=== PATIENT | female | born 1960 | race Caucasian/White ===

== ENCOUNTER 2018-10-17 09:50 | Outpatient (REF) | payer SELFPAY ==
[2018-10-17 21:18] LABS: Anion Gap 11.6 mmol/L (3-11); BUN 22 mg/dL (7-18); CO2 28.4 mmol/L (21.0-32.0); CREATININE 1.37 mg/dL (0.55-1.02); Calcium 10.6 mg/dL (8.5-10.1); Chloride 102 mmol/L (98-107); Estimated GFR 39.88 (mL/min/1.73m2); Glucose 227 mg/dL (70-100); Potassium 4.4 mmol/L (3.5-5.1); Sodium 142 mmol/L (136-145)
== END 2018-10-17 10:10 ==
LOC: NCHCN 09:50
PROVIDERS: PCP Nurse Practitioner Family; Visit Provider Nurse Practitioner Family
DX: E11.9 Type 2 diabetes mellitus without complications (principal); I10 Essential (primary) hypertension
CPT/HCPCS: 80048

== ENCOUNTER 2018-11-02 08:24 | Outpatient (REF) | payer OTHER, SELFPAY ==
[2018-11-02 21:52] LABS: Anion Gap 10.6 mmol/L (3-11); BUN 15 mg/dL (7-18); CO2 30.4 mmol/L (21.0-32.0); CREATININE 1.27 mg/dL (0.55-1.02); Chloride 102 mmol/L (98-107); Estimated GFR 43.53 (mL/min/1.73m2); Glucose 137 mg/dL (70-100); Potassium 4.3 mmol/L (3.5-5.1); Sodium 143 mmol/L (136-145)
== END 2018-11-02 08:44 ==
LOC: NCHCN 08:24
PROVIDERS: PCP Nurse Practitioner Family; Visit Provider Nurse Practitioner Family
DX: I10 Essential (primary) hypertension (principal); E83.52 Hypercalcemia
CPT/HCPCS: 80048

== ENCOUNTER 2019-07-21 09:55 | Outpatient (REF) | payer OTHER, SELFPAY ==
[2019-07-21 21:07] LABS: COMMENT (LAB VIEW ONLY) 200.09 mg/dL; Microalb ug/mg Crea 12.2 ug/mg Cr
== END 2019-07-21 10:15 ==
LOC: NCHCN 09:55
PROVIDERS: PCP Nurse Practitioner Family; Visit Provider Nurse Practitioner Family
DX: E11.9 Type 2 diabetes mellitus without complications (principal); I10 Essential (primary) hypertension; N18.9 Chronic kidney disease, unspecified
CPT/HCPCS: 82043; 82570

== ENCOUNTER 2020-01-12 11:02 | Outpatient (REF) | payer OTHER, SELFPAY ==
[2020-01-12 21:48] LABS: Anion Gap 7.9 mmol/L (3-11); CO2 29.1 mmol/L (21.0-32.0); CREATININE 1.47 mg/dL (0.55-1.02); Calcium 9.6 mg/dL (8.5-10.1); Chloride 100 mmol/L (98-107); Estimated GFR 36.64 (mL/min/1.73m2); Glucose 252 mg/dL (74-106); Magnesium 1.6 mg/dL (1.8-2.4); Potassium 4.3 mmol/L (3.5-5.1); Sodium 137 mmol/L (136-145); Vitamin B12 397 pg/mL (193-986)
[2020-01-12 21:53] LABS: BUN 26 mg/dL (7-18)
[2020-01-12 21:56] LABS: Hemoglobin A1C 7.5 % (3.8-5.6)
== END 2020-01-12 11:22 ==
LOC: NCHCN 11:02
PROVIDERS: PCP Nurse Practitioner Family; Visit Provider Nurse Practitioner Family
DX: E11.9 Type 2 diabetes mellitus without complications (principal); I10 Essential (primary) hypertension; N18.9 Chronic kidney disease, unspecified; R74.8 Abnormal levels of other serum enzymes
CPT/HCPCS: 80048; 82607; 83036; 83735

== ENCOUNTER 2020-07-16 12:06 | Outpatient (REF) | payer OTHER, SELFPAY ==
[2020-07-16 20:52] LABS: HCT 38.4 % (36.0-46.0); HGB 12.4 g/dL (11.2-15.7); MCHC 32.3 % (32.0-36.0); MCV 92.8 fL (80-95); MPV 10.5 fL (8.0-11.0); Platelet Count 356 10^3/uL (130-400); RBC 4.14 10^6/uL (3.93-5.22); RDW 13.5 % (11.7-14.6); RDW-SD 45.8 fL; WBC 7.12 10^3/uL (4.4-10.8)
[2020-07-16 21:20] LABS: ALT 46 U/L (14-59); AST 27 U/L (15-37); Albumin 3.9 g/dL (3.4-5.0); Alkaline Phosphatase 78 U/L (46-116); Anion Gap 10.8 mmol/L (3-11); BUN 22 mg/dL (7-18); Bilirubin, Total 1.1 mg/dL (0.2-1.0); CO2 25.2 mmol/L (21.0-32.0); CREATININE 1.38 mg/dL (0.55-1.02); Calcium 9.6 mg/dL (8.5-10.1); Chloride 103 mmol/L (98-107); Estimated GFR 39.27 (mL/min/1.73m2); Glucose 193 mg/dL (74-106); Magnesium 1.8 mg/dL (1.8-2.4); Potassium 4.2 mmol/L (3.5-5.1); Sodium 139 mmol/L (136-145); TSH 1.89 uIU/mL (0.36-3.74); Total Protein 7.5 g/dL (6.4-8.2)
== END 2020-07-16 12:26 ==
LOC: NCHCN 12:06
PROVIDERS: PCP Nurse Practitioner Family; Visit Provider Nurse Practitioner Family
DX: Z01.818 Encounter for other preprocedural examination (principal); E11.9 Type 2 diabetes mellitus without complications; I10 Essential (primary) hypertension; N18.9 Chronic kidney disease, unspecified; E01.0 Iodine-deficiency related diffuse (endemic) goiter; K21.9 Gastro-esophageal reflux disease without esophagitis; Z13.0 Encounter for screening for diseases of the blood and blood-forming organs and certain disorders involving the immune mechanism
CPT/HCPCS: 80053; 85027; 82043; 82570; 83735; 84443

== ENCOUNTER 2021-06-10 09:48 | Outpatient (REF) | payer OTHER, SELFPAY ==
--- NOTE | 2021-06-10 08:30 | PAPFT_PTH ---
PATIENT: Jahaira Flanagan LOC: [facility]#:[id number] AGE/SX: 60/F ROOM: RE06/10/[address]: Dianna Newman : 1960 BED: DIS: 06/10/2021 SPEC #: [id number] RECD: 06/10/21 16:16 STATUS: GOPAL ORNELAS #: [id number] IFTIKHAR: 06/10/21 08:[address]: Dianna Wei DEPT: [facility] Cytology RECD BY: Rox Edwards Tissues: 1 - CX/ENDOCX FOR PAP SMEARS Procedures: PAP THIN PREP/[facility] Screening HPV DNA PROBE Comments: [id number]
[2021-06-10 14:35] LABS: ALT 58 U/L (14-59); AST 43 U/L (15-37); Albumin 4.1 g/dL (3.4-5.0); Alkaline Phosphatase 75 U/L (46-116); Anion Gap 11.8 mmol/L (3-11); BUN 20 mg/dL (7-18); Bilirubin, Total 1.1 mg/dL (0.2-1.0); CO2 27.2 mmol/L (21.0-32.0); CREATININE 1.5 mg/dL (0.55-1.02); Calcium 9.3 mg/dL (8.5-10.1); Chloride 105 mmol/L (98-107); Estimated GFR 35.67 (mL/min/1.73m2); Glucose 115 mg/dL (74-106); Magnesium 1.7 mg/dL (1.8-2.4); Potassium 4.5 mmol/L (3.5-5.1); Sodium 144 mmol/L (136-145); Total Protein 7.5 g/dL (6.4-8.2); Vitamin B12 759 pg/mL (193-986)
[2021-06-10 14:59] LABS: Microalb ug/mg Crea 6.8 ug/mg Cr
== END 2021-06-10 09:49 | disposition home or self-care (01) ==
LOC: NCHCN 09:48
PROVIDERS: PCP Nurse Practitioner Family; Referring Provider Nurse Practitioner Family; Visit Provider Nurse Practitioner Family
DX: Z12.4 Encounter for screening for malignant neoplasm of cervix (principal); Z01.419 Encounter for gynecological examination (general) (routine) without abnormal findings; E11.9 Type 2 diabetes mellitus without complications; I10 Essential (primary) hypertension; K76.0 Fatty (change of) liver, not elsewhere classified; K21.9 Gastro-esophageal reflux disease without esophagitis; Z00.00 Encounter for general adult medical examination without abnormal findings; Z11.51 Encounter for screening for human papillomavirus (HPV)
CPT/HCPCS: 80053; 88142; 82043; 82570; 82607; 83735; 87624

== ENCOUNTER 2021-09-04 19:47 | Outpatient (REF) | payer OTHER, SELFPAY ==
[2021-09-04 21:36] LABS: Anion Gap 7.6 mmol/L (3-11); BUN 22 mg/dL (7-18); CO2 29.4 mmol/L (21.0-32.0); CREATININE 1.7 mg/dL (0.55-1.02); Calcium 9.8 mg/dL (8.5-10.1); Chloride 102 mmol/L (98-107); Estimated GFR 30.76 (mL/min/1.73m2); Glucose 259 mg/dL (74-106); Potassium 4.1 mmol/L (3.5-5.1); Sodium 139 mmol/L (136-145)
[2021-09-04 21:38] LABS: Hemoglobin A1C 7.5 % (<5.7)
== END 2021-09-04 19:48 | disposition home or self-care (01) ==
LOC: NCHCN 19:47
PROVIDERS: PCP Nurse Practitioner Family; Visit Provider Nurse Practitioner Family
DX: E11.9 Type 2 diabetes mellitus without complications (principal); I10 Essential (primary) hypertension
CPT/HCPCS: 80048; 83036

== ENCOUNTER 2021-09-08 15:12 | Outpatient (REF) | payer OTHER, SELFPAY ==
[2021-09-08 22:32] LABS: Bacteria Negative HPF (Negative); C & S Indicated? No; Casts Negative LPF (Negative); Crystals Negative HPF (Negative); Epithelial Cells Rare HPF (Negative); Mucus Negative (Negative); RBC 0-2 HPF (0-2); WBC Negative HPF (0-5)
== END 2021-09-08 15:13 | disposition home or self-care (01) ==
LOC: NCHCN 15:12
PROVIDERS: PCP Nurse Practitioner Family; Visit Provider Nurse Practitioner Family
DX: N18.9 Chronic kidney disease, unspecified (principal); I10 Essential (primary) hypertension; E11.9 Type 2 diabetes mellitus without complications
CPT/HCPCS: 81015

== ENCOUNTER 2021-09-29 21:13 | Outpatient (REF) | payer OTHER, SELFPAY ==
[2021-09-29 21:53] LABS: Anion Gap 8.7 mmol/L (3-11); BUN 24 mg/dL (7-18); CO2 28.3 mmol/L (21.0-32.0); CREATININE 1.7 mg/dL (0.55-1.02); Calcium 9.6 mg/dL (8.5-10.1); Chloride 105 mmol/L (98-107); Estimated GFR 30.76 (mL/min/1.73m2); Glucose 155 mg/dL (74-106); Potassium 4.4 mmol/L (3.5-5.1); Sodium 142 mmol/L (136-145)
== END 2021-09-29 21:14 | disposition home or self-care (01) ==
LOC: NCHCN 21:13
PROVIDERS: PCP Nurse Practitioner Family; Visit Provider Nurse Practitioner Family
DX: N18.9 Chronic kidney disease, unspecified (principal)
CPT/HCPCS: 80048

== ENCOUNTER 2021-10-23 14:09 | Outpatient (REF) | payer OTHER, SELFPAY ==
[2021-10-23 15:10] LABS: BUN 33 mg/dL (7-18); CREATININE 1.5 mg/dL (0.55-1.02); Calcium 9.7 mg/dL (8.5-10.1); Chloride 101 mmol/L (98-107); Estimated GFR 35.54 (mL/min/1.73m2); Glucose 160 mg/dL (74-106); Potassium 4.5 mmol/L (3.5-5.1); Sodium 139 mmol/L (136-145)
== END 2021-10-23 14:10 | disposition home or self-care (01) ==
LOC: NCHCN 14:09
PROVIDERS: PCP Nurse Practitioner Family; Visit Provider Nurse Practitioner Family
DX: I10 Essential (primary) hypertension (principal); R60.0 Localized edema
CPT/HCPCS: 80048

== ENCOUNTER 2021-12-04 19:44 | Outpatient (REF) | payer OTHER, SELFPAY ==
[2021-12-04 21:44] LABS: Anion Gap 11.2 mmol/L (3-11); BUN 30 mg/dL (7-18); CO2 27.8 mmol/L (21.0-32.0); CREATININE 1.8 mg/dL (0.55-1.02); Calcium 9.4 mg/dL (8.5-10.1); Chloride 104 mmol/L (98-107); Glucose 170 mg/dL (74-106); Potassium 3.1 mmol/L (3.5-5.1); Sodium 143 mmol/L (136-145)
== END 2021-12-04 19:45 | disposition home or self-care (01) ==
LOC: NCHCN 19:44
PROVIDERS: PCP Nurse Practitioner Family; Visit Provider Nurse Practitioner Family
DX: I10 Essential (primary) hypertension (principal)
CPT/HCPCS: 80048

== ENCOUNTER 2022-01-27 20:57 | Outpatient (REF) | payer OTHER, SELFPAY | END 2022-01-27 20:58 | disposition home or self-care (01) | LOC: NCHCN 20:57 | PROVIDERS: PCP Nurse Practitioner Family; Visit Provider Internal Medicine | DX: G70.00 Myasthenia gravis without (acute) exacerbation (principal) | CPT/HCPCS: 83519 ==

== ENCOUNTER 2022-04-28 15:16 | Outpatient (REF) | payer OTHER, SELFPAY ==
[2022-04-28 16:05] LABS: BUN 22 mg/dL (7-18); CREATININE 1.5 mg/dL (0.55-1.02); Calcium 8.9 mg/dL (8.5-10.1); Chloride 102 mmol/L (98-107); Estimated GFR 35.54 (mL/min/1.73m2); Glucose 142 mg/dL (74-106); Potassium 3.7 mmol/L (3.5-5.1); Sodium 141 mmol/L (136-145)
== END 2022-04-28 15:17 | disposition home or self-care (01) ==
LOC: NCHCN 15:16
PROVIDERS: PCP Nurse Practitioner Family; Visit Provider Nurse Practitioner Family
DX: I10 Essential (primary) hypertension (principal)
CPT/HCPCS: 80048

== ENCOUNTER 2022-06-22 16:53 | Outpatient (REF) | payer OTHER, SELFPAY ==
[2022-06-22 20:55] LABS: HCT 35.5 % (36.0-46.0); HGB 11.3 g/dL (11.2-15.7); MCH 27.8 pg (27.0-33.0); MCHC 31.8 % (32.0-36.0); MCV 87 fL (80-95); MPV 10.5 fL (8.0-11.0); Platelet Count 287 10^3/uL (130-400); RBC 4.06 10^6/uL (3.93-5.22); RDW-SD 51.8 fL; WBC 7.05 10^3/uL (4.4-10.8)
[2022-06-22 21:17] LABS: Hemoglobin A1C 7.1 % (<5.7)
[2022-06-22 21:34] LABS: ALT 48 U/L (14-59); AST 31 U/L (15-37); Albumin 3.9 g/dL (3.4-5.0); Alkaline Phosphatase 90 U/L (46-116); Anion Gap 10.3 mmol/L (3-11); BUN 32 mg/dL (7-18); Bilirubin, Total 1.1 mg/dL (0.2-1.0); CO2 27.7 mmol/L (21.0-32.0); CREATININE 1.7 mg/dL (0.55-1.02); Calcium 9.2 mg/dL (8.5-10.1); Calculated LDL 50 mg/dL (<100); Chloride 103 mmol/L (98-107); Cholesterol 128 mg/dL (<200); Estimated GFR 34.12 (mL/min/1.73m2); Glucose 148 mg/dL (74-106); HDL Cholesterol 46 mg/dL (40-60); Magnesium 1.8 mg/dL (1.8-2.4); Potassium 3.6 mmol/L (3.5-5.1); Sodium 141 mmol/L (136-145); TSH 1.72 uIU/mL (0.36-3.74); Total Protein 7.9 g/dL (6.4-8.2); Triglyceride 160 mg/dL (<150); Vitamin B12 707 pg/mL (193-986)
== END 2022-06-22 16:54 | disposition home or self-care (01) ==
LOC: NCHCN 16:53
PROVIDERS: PCP Nurse Practitioner Family; Visit Provider Nurse Practitioner Family
DX: E11.9 Type 2 diabetes mellitus without complications (principal); I10 Essential (primary) hypertension; E01.0 Iodine-deficiency related diffuse (endemic) goiter; E78.5 Hyperlipidemia, unspecified; N18.9 Chronic kidney disease, unspecified; K21.9 Gastro-esophageal reflux disease without esophagitis
CPT/HCPCS: 80053; 80061; 85027; 82607; 83036; 83735; 84443

== ENCOUNTER 2022-06-29 18:30 | Outpatient (REF) | payer OTHER, SELFPAY ==
[2022-06-29 21:55] LABS: Microalb ug/mg Crea 9.5 ug/mg Cr
== END 2022-06-29 18:31 | disposition home or self-care (01) ==
LOC: NCHCN 18:30
PROVIDERS: PCP Nurse Practitioner Family; Visit Provider Nurse Practitioner Family
DX: E11.9 Type 2 diabetes mellitus without complications (principal)
CPT/HCPCS: 82043; 82570

== ENCOUNTER 2022-12-21 15:55 | Outpatient (REF) | payer OTHER, SELFPAY ==
[2022-12-21 21:15] LABS: Anion Gap 8.5 mmol/L (3-11); BUN 31 mg/dL (7-18); CO2 28.5 mmol/L (21.0-32.0); CREATININE 1.6 mg/dL (0.55-1.02); Calcium 9.4 mg/dL (8.5-10.1); Chloride 104 mmol/L (98-107); Estimated GFR 36.69 (mL/min/1.73m2); Glucose 133 mg/dL (74-106); Sodium 141 mmol/L (136-145)
[2022-12-21 21:20] LABS: Hemoglobin A1C 7.4 % (<5.7)
== END 2022-12-21 15:56 | disposition home or self-care (01) ==
LOC: NCHCN 15:55
PROVIDERS: PCP Nurse Practitioner Family; Visit Provider Nurse Practitioner Family
DX: E11.9 Type 2 diabetes mellitus without complications (principal); I10 Essential (primary) hypertension
CPT/HCPCS: 80048; 83036

== ENCOUNTER 2023-06-21 15:49 | Outpatient (REF) | payer OTHER, SELFPAY ==
[2023-06-21 22:07] LABS: HGB 11.5 g/dL (11.2-15.7); MCH 28.1 pg (27.0-33.0); MCHC 31.1 % (32.0-36.0); MCV 91 fL (80-95); MPV 10.5 fL (8.0-11.0); Platelet Count 275 10^3/uL (130-400); RBC 4.09 10^6/uL (3.93-5.22); RDW 14.7 % (11.7-14.6); RDW-SD 49.5 fL; WBC 7.44 10^3/uL (4.4-10.8)
[2023-06-21 22:36] LABS: Hemoglobin A1C 7.1 % (<5.7)
[2023-06-21 22:56] LABS: ALT 30 U/L (14-59); AST 24 U/L (15-37); Albumin 3.7 g/dL (3.4-5.0); Alkaline Phosphatase 101 U/L (46-116); Anion Gap 10.7 mmol/L (3-11); BUN 27 mg/dL (7-18); Bilirubin, Total 1.3 mg/dL (0.2-1.0); CO2 26.3 mmol/L (21.0-32.0); CREATININE 1.4 mg/dL (0.55-1.02); Calcium 9.5 mg/dL (8.5-10.1); Chloride 103 mmol/L (98-107); Glucose 210 mg/dL (74-106); Potassium 3.6 mmol/L (3.5-5.1); Sodium 140 mmol/L (136-145); Total Protein 7.8 g/dL (6.4-8.2)
== END 2023-06-21 15:50 | disposition home or self-care (01) ==
LOC: NCHCN 15:49
PROVIDERS: PCP Nurse Practitioner Family; Visit Provider Nurse Practitioner Family
DX: E11.9 Type 2 diabetes mellitus without complications (principal); I10 Essential (primary) hypertension; D64.9 Anemia, unspecified; N18.9 Chronic kidney disease, unspecified
CPT/HCPCS: 80053; 85027; 83036

== ENCOUNTER 2023-06-28 14:06 | Outpatient (REF) | payer OTHER, SELFPAY ==
[2023-06-28 21:31] LABS: COMMENT (LAB VIEW ONLY) 53.91 mg/dL; Microalb ug/mg Crea 16.5 ug/mg Cr
== END 2023-06-28 14:07 | disposition home or self-care (01) ==
LOC: NCHCN 14:06
PROVIDERS: PCP Nurse Practitioner Family; Visit Provider Nurse Practitioner Family
DX: E11.9 Type 2 diabetes mellitus without complications (principal)
CPT/HCPCS: 82043; 82570

== ENCOUNTER 2023-09-28 16:27 | Outpatient (REF) | payer OTHER, SELFPAY ==
[2023-09-28 17:51] LABS: Anion Gap 9.7 mmol/L (3-11); BUN 28 mg/dL (7-18); CO2 26.3 mmol/L (21.0-32.0); CREATININE 1.5 mg/dL (0.55-1.02); Calcium 9.2 mg/dL (8.5-10.1); Chloride 106 mmol/L (98-107); Glucose 167 mg/dL (74-106); Potassium 3.9 mmol/L (3.5-5.1); Sodium 142 mmol/L (136-145)
[2023-09-28 18:15] LABS: Hemoglobin A1C 6.8 % (<5.7)
== END 2023-09-28 16:28 | disposition home or self-care (01) ==
LOC: NCHCN 16:27
PROVIDERS: PCP Nurse Practitioner Family; Visit Provider Nurse Practitioner Family
DX: I10 Essential (primary) hypertension (principal); E11.9 Type 2 diabetes mellitus without complications
CPT/HCPCS: 80048; 83036

== ENCOUNTER 2024-05-16 17:16 | Outpatient (REF) | payer OTHER, SELFPAY ==
[2024-05-16 15:15] LABS: HCT 41.3 % (36.0-46.0); HGB 12.9 g/dL (11.2-15.7); MCHC 31.2 % (32.0-36.0); MCV 93 fL (80-95); MPV 10.3 fL (8.0-11.0); Platelet Count 279 10^3/uL (130-400); RBC 4.45 10^6/uL (3.93-5.22); RDW 13.4 % (11.7-14.6); RDW-SD 45.8 fL; WBC 6.52 10^3/uL (4.4-10.8)
[2024-05-16 15:42] LABS: ALT 27 U/L (14-59); AST 21 U/L (15-37); Albumin 3.9 g/dL (3.4-5.0); Alkaline Phosphatase 92 U/L (46-116); Anion Gap 7.6 mmol/L (3-11); BUN 25 mg/dL (7-18); Bilirubin, Total 1.04 mg/dL (0.2-1.0); CO2 30.4 mmol/L (21.0-32.0); CREATININE 1.3 mg/dL (0.55-1.02); Calcium 9.4 mg/dL (8.5-10.1); Calculated LDL 61 mg/dL (<100); Chloride 104 mmol/L (98-107); Cholesterol 135 mg/dL (<200); Estimated GFR 46.78 (mL/min/1.73m2); Glucose 115 mg/dL (74-106); HDL Cholesterol 46 mg/dL (40-60); Potassium 3.9 mmol/L (3.5-5.1); Sodium 142 mmol/L (136-145); Total Protein 7.7 g/dL (6.4-8.2); Triglyceride 140 mg/dL (<150)
== END 2024-05-16 17:17 | disposition home or self-care (01) ==
LOC: NCHCN 17:16
PROVIDERS: PCP Nurse Practitioner Family; Visit Provider Nurse Practitioner Family
DX: Z01.818 Encounter for other preprocedural examination (principal); Z13.29 Encounter for screening for other suspected endocrine disorder; E78.5 Hyperlipidemia, unspecified
CPT/HCPCS: 80053; 80061; 85027; 84443

== ENCOUNTER 2024-07-17 16:28 | Outpatient (REF) | payer OTHER, SELFPAY ==
[2024-07-17 18:07] LABS: COMMENT (LAB VIEW ONLY) 172.94 mg/dL; Microalb ug/mg Crea 11.3 ug/mg Cr
== END 2024-07-17 16:29 | disposition home or self-care (01) ==
LOC: NCHCN 16:28
PROVIDERS: PCP Nurse Practitioner Family; Visit Provider Nurse Practitioner Family
DX: E11.9 Type 2 diabetes mellitus without complications (principal)
CPT/HCPCS: 82043; 82570

== ENCOUNTER 2024-10-30 12:32 | Outpatient (REF) | payer OTHER, SELFPAY ==
[2024-10-30 14:54] LABS: Abs Immature Grans 0.03 10^3/uL (0.0-0.06); Absolute Basophil Count 0.03 10^3/uL (0.0-0.2); Absolute Eosinophil Count 0.09 10^3/uL (0.0-0.7); Absolute Lymphocyte Count 1.34 10^3/uL (1.2-3.4); Absolute Monocyte Count 0.54 10^3/uL (0.1-0.8); Absolute Neutrophil Count 5.94 10^3/uL (1.2-6.7); Basophils % 0.4 %; Eosinophils % 1.1 %; Immature Grans % 0.4 %; Lymphocytes % 16.8 %; MCH 29.1 pg (27.0-33.0); MCHC 31.1 % (32.0-36.0); MCV 94 fL (80-95); MPV 10.2 fL (8.0-11.0); Monocytes % 6.8 %; Neutrophils % 74.5 %; Platelet Count 305 10^3/uL (130-400); RBC 4.81 10^6/uL (3.93-5.22); RDW 13.6 % (11.7-14.6); RDW-SD 46.9 fL; WBC 7.97 10^3/uL (4.4-10.8)
[2024-10-30 15:11] LABS: Hemoglobin A1C 6.3 % (<5.7)
[2024-10-30 15:18] LABS: ALT 30 U/L (14-59); AST 21 U/L (15-37); Albumin 4.2 g/dL (3.4-5.0); Alkaline Phosphatase 103 U/L (46-116); Anion Gap 9.6 mmol/L (3-11); BUN 25 mg/dL (7-18); CO2 31.4 mmol/L (21.0-32.0); CREATININE 1.7 mg/dL (0.55-1.02); Calcium 10.3 mg/dL (8.5-10.1); Chloride 101 mmol/L (98-107); Glucose 139 mg/dL (74-106); Potassium 4.7 mmol/L (3.5-5.1); Sodium 142 mmol/L (136-145); Total Protein 8.5 g/dL (6.4-8.2)
[2024-10-30 20:18] LABS: Bilirubin, Direct 0.4 mg/dL (0.0-0.2)
== END 2024-10-30 12:33 | disposition home or self-care (01) ==
LOC: NCHCN 12:32
PROVIDERS: PCP Nurse Practitioner Family; Visit Provider Family Medicine
DX: E11.9 Type 2 diabetes mellitus without complications (principal); Z01.818 Encounter for other preprocedural examination; R17 Unspecified jaundice
CPT/HCPCS: 80053; 82248; 83036; 85025

== ENCOUNTER 2025-01-01 14:59 | Outpatient (REF) | payer OTHER, SELFPAY ==
[2025-01-01 21:36] LABS: ALT 32 U/L (14-59); AST 18 U/L (15-37); Alkaline Phosphatase 91 U/L (46-116); Anion Gap 8.9 mmol/L (3-11); BUN 24 mg/dL (7-18); Bilirubin, Direct 0.3 mg/dL (0.0-0.2); Bilirubin, Total 1.5 mg/dL (0.2-1.0); CO2 30.1 mmol/L (21.0-32.0); CREATININE 1.5 mg/dL (0.55-1.02); Calcium 9.6 mg/dL (8.5-10.1); Chloride 104 mmol/L (98-107); Estimated GFR 39.16 (mL/min/1.73m2); Glucose 120 mg/dL (74-106); Potassium 4.4 mmol/L (3.5-5.1); Sodium 143 mmol/L (136-145); Total Protein 7.3 g/dL (6.4-8.2)
== END 2025-01-01 15:00 | disposition home or self-care (01) ==
LOC: NCHCN 14:59
PROVIDERS: PCP Nurse Practitioner Family; Visit Provider Nurse Practitioner Family
DX: E80.6 Other disorders of bilirubin metabolism (principal)
CPT/HCPCS: 80053; 82248

== ENCOUNTER 2025-07-05 09:30 | Outpatient (REF) | payer BC, SELFPAY ==
[2025-07-05 15:46] LABS: COMMENT (LAB VIEW ONLY) 236.43 mg/dL; Microalb ug/mg Crea 8.4 ug/mg Cr
== END 2025-07-05 09:31 | disposition home or self-care (01) ==
LOC: NCHCN 09:30
PROVIDERS: PCP Nurse Practitioner Family; Visit Provider Nurse Practitioner Family
DX: E11.9 Type 2 diabetes mellitus without complications (principal)
CPT/HCPCS: 82043; 82570